=== PATIENT | female | born 1935 | race Caucasian/White ===

== ENCOUNTER → 2016-10-26 | Outpatient (CLI) | payer MEDICARE | END | disposition short-term general hospital (02) | LOC: CLPAIN 09:34 | DX: M47.897 Other spondylosis, lumbosacral region (principal); M47.22 Other spondylosis with radiculopathy, cervical region; M16.11 Unilateral primary osteoarthritis, right hip; M16.12 Unilateral primary osteoarthritis, left hip ==

== ENCOUNTER 2016-11-06 08:28 | Day surgery (SDC) | payer MEDICARE ==
[~2016-11-06] VITALS: Ht 151.1 cm; Wt 60.3 kg
== END 2016-11-06 11:20 | disposition short-term general hospital (02) ==
LOC: SURGOP 08:28
PROC: 0DJD8ZZ Inspection of Lower Intestinal Tract, Via Natural or Artificial Opening Endoscopic (ICD-10-PCS; principal; 2016-11-06)
DX: R19.7 Diarrhea, unspecified (principal); M54.5 Low back pain; M06.9 Rheumatoid arthritis, unspecified; I10 Essential (primary) hypertension; I25.2 Old myocardial infarction; E78.5 Hyperlipidemia, unspecified; K21.9 Gastro-esophageal reflux disease without esophagitis; Z85.118 Personal history of other malignant neoplasm of bronchus and lung; Z87.891 Personal history of nicotine dependence; Z88.6 Allergy status to analgesic agent; Z88.8 Allergy status to other drugs, medicaments and biological substances; Z79.891 Long term (current) use of opiate analgesic; Z79.899 Other long term (current) drug therapy; Z96.612 Presence of left artificial shoulder joint; Z98.41 Cataract extraction status, right eye; Z98.42 Cataract extraction status, left eye; Z98.890 Other specified postprocedural states

== ENCOUNTER 2016-11-16 11:43 | Day surgery (SDC) | payer MEDICARE | END 2016-11-16 13:54 | disposition short-term general hospital (02) | LOC: SURGOP 11:43 | PROC: 3E0R3BZ Introduction of Anesthetic Agent into Spinal Canal, Percutaneous Approach (ICD-10-PCS; principal; 2016-11-16) | PROC: 3E0R33Z Introduction of Anti-inflammatory into Spinal Canal, Percutaneous Approach (ICD-10-PCS; 2016-11-16) | DX: M47.816 Spondylosis without myelopathy or radiculopathy, lumbar region (principal); K21.9 Gastro-esophageal reflux disease without esophagitis; M06.9 Rheumatoid arthritis, unspecified; M19.90 Unspecified osteoarthritis, unspecified site; F32.9 Major depressive disorder, single episode, unspecified; Z85.118 Personal history of other malignant neoplasm of bronchus and lung; Z88.6 Allergy status to analgesic agent; Z88.8 Allergy status to other drugs, medicaments and biological substances; Z90.2 Acquired absence of lung [part of]; Z96.619 Presence of unspecified artificial shoulder joint; Z98.49 Cataract extraction status, unspecified eye; Z98.890 Other specified postprocedural states | CPT/HCPCS: J1040 ==

== ENCOUNTER → 2016-12-14 | Outpatient (CLI) | payer MEDICARE | END | disposition short-term general hospital (02) | LOC: CLPAIN 09:21 | DX: M47.897 Other spondylosis, lumbosacral region (principal); M16.0 Bilateral primary osteoarthritis of hip; M70.72 Other bursitis of hip, left hip | CPT/HCPCS: J1030 ==

== ENCOUNTER 2016-12-28 12:18 | Day surgery (SDC) | payer MEDICARE ==
[~2016-12-28] VITALS: Ht 151.1 cm; Wt 61.7 kg
== END 2016-12-28 16:38 | disposition short-term general hospital (02) ==
LOC: SURGOP 12:18
PROC: 3E0R33Z Introduction of Anti-inflammatory into Spinal Canal, Percutaneous Approach (ICD-10-PCS; principal; 2016-12-28)
PROC: 3E0R3BZ Introduction of Anesthetic Agent into Spinal Canal, Percutaneous Approach (ICD-10-PCS; 2016-12-28)
DX: M47.816 Spondylosis without myelopathy or radiculopathy, lumbar region (principal); Z88.6 Allergy status to analgesic agent; Z88.8 Allergy status to other drugs, medicaments and biological substances; Z98.890 Other specified postprocedural states
CPT/HCPCS: J2250; J3010

== ENCOUNTER → 2017-01-01 | Outpatient (CLI) | payer MEDICARE | END | disposition short-term general hospital (02) | LOC: CLPULM 11:16 | DX: C34.11 Malignant neoplasm of upper lobe, right bronchus or lung (principal); M06.9 Rheumatoid arthritis, unspecified; M81.0 Age-related osteoporosis without current pathological fracture; M10.9 Gout, unspecified; F32.9 Major depressive disorder, single episode, unspecified; H40.9 Unspecified glaucoma; Z87.891 Personal history of nicotine dependence; Z90.2 Acquired absence of lung [part of] ==